=== PATIENT | female | born 1950 | race Caucasian/White ===

== ENCOUNTER 2018-07-16 11:41 | Day surgery (SDC) | payer OTHER, MEDICARE ==
[~2018-07-16] VITALS: Ht 154.9 cm; Wt 66.7 kg
[2018-07-16 12:24] VITALS: BP 145/97
[2018-07-16] MEDS ORDERED: LIDOCAINE-MPF 1%, 5ML ONE (12:45)
[2018-07-16] MEDS ORDERED: FLUMAZENIL 0.1 MG/1 ML, 5ML ONE (13:15)
[2018-07-16] MEDS ORDERED: FENTANYL PF 100 MCG/2ML ONE (13:15)
[2018-07-16] MEDS ORDERED: MIDAZOLAM 1 MG/ML, 5ML ONE (13:15)
[2018-07-16] MEDS ORDERED: NALOXONE 1 MG/ML, 2ML ONE (13:16)
== END 2018-07-16 15:30 | disposition home or self-care (01) ==
LOC: OUT 11:41 → EDSTATUS 13:30 → OUT 15:30
PROVIDERS: ATTEND Internal Medicine Hematology & Oncology
DX: D50.9 Iron deficiency anemia, unspecified (principal); I10 Essential (primary) hypertension; Z85.038 Personal history of other malignant neoplasm of large intestine; E03.9 Hypothyroidism, unspecified; Z98.890 Other specified postprocedural states; Z90.81 Acquired absence of spleen
CPT/HCPCS: 38505; 77012; 88305; 99156; J2250; J3010; 99157; J2310